=== PATIENT | female | born 1995 | race American Indian/Alaskan Native ===

== ENCOUNTER 2019-01-05 10:47 | Emergency (ER) | payer OTHER ==
[2019-01-05 11:30] LABS: Basophils # (Auto) 0.1 K/mm3 (0.0-0.1); Eosinophils % (Auto) 0.1 % (0.0-4.3); Hematocrit 39.2 % (30.3-42.9); Hemoglobin 13.2 gm/dl (10.1-14.3); Lymphocytes # (Auto) 1.4 K/mm3 (1.2-5.4); Lymphocytes % (Auto) 18.8 % (13.4-35.0); Mean Corpuscular HGB Conc 34 % (30-34); Mean Corpuscular Volume 95 fl (79-97); Monocytes # (Auto) 0.4 K/mm3 (0.0-0.8); Monocytes % (Auto) 5.5 % (0.0-7.3); Platelet Count 275 K/mm3 (140-440); Red Blood Count 4.11 M/mm3 (3.65-5.03); Red Cell Distribution Width 13.2 % (13.2-15.2)
[2019-01-05] MEDS ORDERED: NACL 0.9% 1000 ML 1,000 ML ONE (11:38)
[2019-01-05] MEDS ORDERED: ZOFRAN ONE (11:38)
[2019-01-05] MEDS ORDERED: TORADOL IV ONE (11:39)
[2019-01-05] MEDS ORDERED: BENTYL IM ONE (11:39)
[2019-01-05] MEDS ORDERED: NACL 0.9% 1000 ML 1,000 ML IV ONE ×2 (11:39→14:19)
[2019-01-05] MEDS ORDERED: PEPCID IV ONE (11:39)
[2019-01-05] MEDS ORDERED: ZOFRAN IV ONE ×2 (11:43→15:00)
[2019-01-05 11:45] LABS: Alanine Aminotransferase 17 units/L (7-56); Albumin 4.5 g/dL (3.9-5); BUN/Creatinine Ratio 10; Blood Urea Nitrogen 7 mg/dL (7-17); Calcium 9.9 mg/dL (8.4-10.2); Hemolysis Index 5
[2019-01-05] MEDS ORDERED: REGLAN IV ONE (12:09)
--- NOTE | 2019-01-05 14:36 | Ultrasound Report ---
ULTRASOUND OBSTETRIC INDICATION / CLINICAL INFORMATION: preg with abd pain. Clinical Gestational Age (GA): Unknown. Beta-hCG level is 22,563. TECHNIQUE: Transabdominal. Patient declined transvaginal examination. COMPARISON: None available. FINDINGS: GESTATIONAL SAC: Intrauterine gestational sac measuring 2.3 cm corresponding to 7 weeks 2 days gestat ional age. YOLK SAC: Possible small yolk sac visualized. EMBRYO/FETUS: Embryonic pole not definitely visualized. ADNEXA: No significant abnormality. FREE FLUID: None. ADDITIONAL FINDINGS: None. IMPRESSION: 1. Intrauterine gestational sac with size corresponding to 7 weeks 2 days gestational age. 2. No definite embryonic pole identified. Short-term clinical and laboratory follow-up is recommended . Repeat ultrasound, preferably with transvaginal technique, is recommended in 7-10 days. Signer Name: Arvind Rose MD Signed: 01/05/2019 2:32 PM Workstation Name: [id number]
[2019-01-05] MEDS ORDERED: D5NS 1,000 ML IV SCH ×2 (15:00→17:00)
[2019-01-05 15:40] LABS: Bilirubin,Urine SM (Negative); Blood,Urine NEG (Negative); Color,Urine Amber (Yellow); Mucus,Urine 3+ /HPF
[2019-01-05 15:42] LABS: Protein,Urine >500 mg/dL (Negative)
[2019-01-05 15:43] LABS: Ictotest,Urine Positive (Negative)
[2019-01-05] MEDS ORDERED: PHENERGAN PO ONE (15:56)
--- NOTE | 2019-01-05 15:56 | Ultrasound Report ---
US ABDOMEN LIMITED INDICATION / CLINICAL INFORMATION: RLQ pain. Patient is . COMPARISON: Ultrasound obstetric performed earlier in the day. FINDINGS: No abnormal appendix identified in the right lower quadrant. No abnormal fluid collection in the righ t lower quadrant. GESTATIONAL SAC: Well-defined oval shape and intrauterine in location. YOLK SAC: The yolk sac is better identified on this study than the previous study. EMBRYO/FETUS: No significant abnormality. - [place]-Rump Length = 0.42 cm = 6 weeks, 1 day(s). - Heart Rate, beats per minute (if present) = 87 IMPRESSION: 1. No sonographic abnormality of the right lower quadrant. 2. Yolk sac and embryonic pole better identified on the current study. heart rate is low at 87 bpm. Close clinical and sonographic follow-up is recommended. Signer Name: Avrind Rose MD Signed: 01/05/2019 3:52 PM Workstation Name: [id number]
--- NOTE | 2019-01-05 16:26 | Emergency Department Report ---
ED Abdominal Pain HPI - General Chief Complaint: Nausea/Vomiting/Diarrhea Stated Complaint: NAUSEA/WEAK Time Seen by Provider: 01/05/19 11:39 Source: patient Mode of arrival: Ambulatory Limitations: No Limitations - History of Present Illness Initial Comments: Patient is a 23-year-old female who is presenting with lower abdominal pain which is worse on the right lower quadrant. Patient states that the pain has been constant for the last 4 days. Patient been unable to keep anything down and said numerous episodes of nausea and vomiting. She denies diarrhea. Patient denies dysuria hematuria or vaginal discharge or vaginal bleeding. Patient's has some chills but no fever. Severity scale (0 -10): 0 - Related Data Previous Rx's Medication Instructions Recorded Last Taken Type Metoclopramide [Reglan] 10 mg PO TID #12 tab 01/05/19 Unknown Rx Nitrofurantoin [place]/M-Cryst 100 mg PO Q12HR #14 capsule 01/05/19 Unknown Rx [Macrobid CAP] Promethazine [Phenergan] 25 mg WA Q6HR PRN #7 supp.rect 01/05/19 Unknown Rx Allergies Allergy/AdvReac Type Severity Reaction Status Date / Time No Known Allergies Allergy Verified 01/05/19 10:54 ED Review of Systems ROS: Stated complaint: NAUSEA/WEAK Other details as noted in HPI Comment: All other systems reviewed and negative ED Past Medical Hx - Past Medical History Previous Medical History?: No - Surgical History Past Surgical History?: No - Social History Smoking Status: Current Every Day Smoker Substance Use Type: None - Medications Home Medications: Home Medications Medication Instructions Recorded Confirmed Last Taken Type Metoclopramide [Reglan] 10 mg PO TID #12 tab 01/05/19 Unknown Rx Nitrofurantoin [place]/M-Cryst 100 mg PO Q12HR #14 capsule 01/05/19 Unknown Rx [Macrobid CAP] Promethazine [Phenergan] 25 mg WA Q6HR PRN #7 supp.rect 01/05/19 Unknown Rx ED Physical Exam - General Limitations: No Limitations General appearance: alert, in distress - Head Head exam: Present: atraumatic, normocephalic - Eye Eye exam: Present: normal appearance - ENT ENT exam: Present: mucous membranes moist - Neck Neck exam: Present: normal inspection - Respiratory Respiratory exam: Present: normal lung sounds bilaterally. Absent: respiratory distress, wheezes, rales, rhonchi - Cardiovascular Cardiovascular Exam: Present: regular rate, normal rhythm. Absent: systolic murmur, diastolic murmur, rubs, gallop - GI/Abdominal GI/Abdominal exam: Present: soft, tenderness (lower abd R>L), normal bowel [place] nds. Absent: distended, guarding, rebound, rigid - Extremities Exam Extremities exam: Present: normal inspection - Back Exam Back exam: Present: normal inspection - Neurological Exam Neurological exam: Present: alert, oriented X3 - Psychiatric Psychiatric exam: Present: normal affect, normal mood - Skin Skin exam: Present: warm, dry, intact, normal color. Absent: rash ED Course Vital Signs 01/05/19 10:59 Temperature 97.7 F Pulse Rate 82 Respiratory 16 Rate Blood Pressure 125/86 Blood Pressure 125/86 [Left] O2 Sat by Pulse 99 Oximetry ED Medical Decision Making - Lab Data Result diagrams: 01/05/19 11:08 01/05/19 11:08 Lab Results 01/05/19 01/05/19 01/05/19 Range/Units 11:08 11:08 11:08 WBC 7.5 (4.5-11.0) K/mm3 RBC 4.11 (3.65-5.03) M/mm3 Hgb 13.2 (10.1-14.3) gm/dl Hct 39.2 (30.3-42.9) % MCV 95 (79-97) fl MCH 32 (28-32) pg MCHC 34 (30-34) % RDW 13.2 (13.2-15.2) % Plt Count 275 (140-440) K/mm3 Lymph % (Auto) 18.8 (13.4-35.0) % [place] % (Auto) 5.5 (0.0-7.3) % Eos % (Auto) 0.1 (0.0-4.3) % Baso % (Auto) 1.0 (0.0-1.8) % Lymph # 1.4 (1.2-5.4) K/mm3 [place] # 0.4 (0.0-0.8) K/mm3 Eos # 0.0 (0.0-0.4) K/mm3 Baso # 0.1 (0.0-0.1) K/mm3 Seg Neutrophils % 74.6 H (40.0-70.0) % Seg Neutrophils # 5.6 (1.8-7.7) K/mm3 Sodium 137 (137-145) mmol/L Potassium 3.2 L (3.6-5.0) mmol/L Chloride 102.0 (98-107) mmol/L Carbon Dioxide 18 L (22-30) mmol/L Anion Gap 20 mmol/L BUN 7 (7-17) mg/dL Creatinine 0.7 (0.7-1.2) mg/dL Estimated GFR > 60 ml/min BUN/Creatinine Ratio 10 % Glucose 140 H (65-100) mg/dL Calcium 9.9 (8.4-10.2) mg/dL Total Bilirubin 1.10 (0.1-1.2) mg/dL AST 18 (5-40) units/L ALT 17 (7-56) units/L Alkaline Phosphatase 60 (35-129) units/L Total Protein 7.6 (6.3-8.2) g/dL Albumin 4.5 (3.9-5) g/dL Albumin/Globulin Ratio 1.5 % Lipase (13-60) units/L HCG, Qual Positive (Negative) HCG, Quant (0-4) mIU/mL Urine Color (Yellow) Urine Turbidity (Clear) Urine pH (5.0-7.0) Ur Specific [place] (1.003-1.030) Urine Protein (Negative) mg/dL Urine Glucose (UA) (Negative) mg/dL Urine Ketones (Negative) mg/dL Urine Blood (Negative) Urine Nitrite (Negative) Urine Bilirubin (Negative) Urine Ictotest (Negative) Urine Urobilinogen (<2.0) mg/dL Ur Leukocyte Esterase (Negative) Urine WBC (Auto) (0.0-6.0) /HPF Urine RBC (Auto) (0.0-6.0) /HPF U Epithel Cells (Auto) (0-13.0) /HPF Urine Mucus /HPF 01/05/19 01/05/19 01/05/19 Range/Units 11:08 11:08 15:22 WBC (4.5-11.0) K/mm3 RBC (3.65-5.03) M/mm3 Hgb (10.1-14.3) gm/dl Hct (30.3-42.9) % MCV (79-97) fl MCH (28-32) pg MCHC (30-34) % RDW (13.2-15.2) % Plt Count (140-440) K/mm3 Lymph % (Auto) (13.4-35.0) % [place] % (Auto) (0.0-7.3) % Eos % (Auto) (0.0-4.3) % Baso % (Auto) (0.0-1.8) % Lymph # (1.2-5.4) K/mm3 [place] # (0.0-0.8) K/mm3 Eos # (0.0-0.4) K/mm3 Baso # (0.0-0.1) K/mm3 Seg Neutrophils % (40.0-70.0) % Seg Neutrophils # (1.8-7.7) K/mm3 Sodium (137-145) mmol/L Potassium (3.6-5.0) mmol/L Chloride (98-107) mmol/L Carbon Dioxide (22-30) mmol/L Anion Gap mmol/L BUN (7-17) mg/dL Creatinine (0.7-1.2) mg/dL Estimated GFR ml/min BUN/Creatinine Ratio % Glucose (65-100) mg/dL Calcium (8.4-10.2) mg/dL Total Bilirubin (0.1-1.2) mg/dL AST (5-40) units/L ALT (7-56) units/L Alkaline Phosphatase (35-129) units/L Total Protein (6.3-8.2) g/dL Albumin (3.9-5) g/dL Albumin/Globulin Ratio % Lipase 14 (13-60) units/L HCG, Qual (Negative) HCG, Quant 79609 H (0-4) mIU/mL Urine Color [place] (Yellow) Urine Turbidity Cloudy (Clear) Urine pH 6.0 (5.0-7.0) Ur Specific [place] 1.034 H (1.003-1.030) Urine Protein >500 (Negative) mg/dL Urine Glucose (UA) 50 (Negative) mg/dL Urine Ketones 80 (Negative) mg/dL Urine Blood Neg (Negative) Urine Nitrite Neg (Negative) Urine Bilirubin Sm (Negative) Urine Ictotest Positive (Negative) Urine Urobilinogen 2.0 (<2.0) mg/dL Ur Leukocyte Esterase Tr (Negative) Urine WBC (Auto) 7.0 H (0.0-6.0) /HPF Urine RBC (Auto) 3.0 (0.0-6.0) /HPF U Epithel Cells (Auto) 43.0 H (0-13.0) /HPF Urine Mucus 3+ /HPF - Radiology Data [address] [address] Ultrasound Report Signed Patient: DALY ERWIN MR#: [id number] : 1995 Acct:[id number] Age/Sex: 23 / F ADM Date: 01/05/19 Loc: ED Attending Dr: Ordering Physician: KALYAN GALEANO MD Date of Service: 01/05/19 Procedure(s): US OB <= 14 weeks fetus Accession Number(s): [id number] cc: KALYAN GALEANO MD ULTRASOUND OBSTETRIC INDICATION / CLINICAL INFORMATION: preg with abd pain. Clinical Gestational Age (GA): Unknown. Beta-hCG level is 22,563. TECHNIQUE: Transabdominal. Patient declined transvaginal examination. COMPARISON: None available. FINDINGS: GESTATIONAL SAC: Intrauterine gestational sac measuring 2.3 cm corresponding to 7 weeks 2 days gestational age. YOLK SAC: Possible small yolk sac visualized. EMBRYO/FETUS: Embryonic pole not definitely visualized. ADNEXA: No significant abnormality. FREE FLUID: None. ADDITIONAL FINDINGS: None. IMPRESSION: 1. Intrauterine gestational sac with size corresponding to 7 weeks 2 days gestational age. 2. No definite embryonic pole identified. Short-term clinical and laboratory follow-up is recommended. Repeat ultrasound, preferably with transvaginal technique, is recommended in 7-10 days. Signer Name: Arvind Rose MD Signed: 01/05/2019 2:32 PM Workstation Name: [id number] Transcribed By: DT Dictated By: Damaso Rose MD Electronically Authenticated By: Damaso Rose MD Signed Date/Time: 01/05/[address] [address] Ultrasound Report Signed Patient: DALY ERWIN MR#: [id number] : 1995 Acct:[id number] Age/Sex: 23 / F ADM Date: 01/05/19 Loc: ED Attending Dr: Ordering Physician: KALYAN GALEANO MD Date of Service: 01/05/19 Procedure(s): US abdomen limited Accession Number(s): [id number] cc: KALYAN GALEANO MD US ABDOMEN LIMITED INDICATION / CLINICAL INFORMATION: RLQ pain. Patient is . COMPARISON: Ultrasound obstetric performed earlier in the day. FINDINGS: No abnormal appendix identified in the right lower quadrant. No abnormal fluid collection in the right lower quadrant. GESTATIONAL SAC: Well-defined oval shape and intrauterine in location. YOLK SAC: The yolk sac is better identified on this study than the previous study. EMBRYO/FETUS: No significant abnormality. - [place]-Rump Length = 0.42 cm = 6 weeks, 1 day(s). - Heart Rate, beats per minute (if present) = 87 IMPRESSION: 1. No sonographic abnormality of the right lower quadrant. 2. Yolk sac and embryonic pole better identified on the current study. heart rate is low at 87 bpm. Close clinical and sonographic follow-up is recommended. Signer Name: Arvind Rose MD Signed: 01/05/2019 3:52 PM Workstation Name: [id number] Transcribed By: DT Dictated By: Damaso Rose MD Electronically Authenticated By: Damaso Rose MD Signed Date/Time: 01/05/19 1554 - Medical Decision Making Patient is 23-year-old [place] female who is presenting with abdominal pain nausea vomiting. Patient is in some distress secondary to actively vomiting. Because of the patient's pain location nausea vomiting and duration of symptoms initial thought was to check labs and do a CT of the abdomen and pelvis. Patien t was given Zofran and started on IV fluids. Patient's appropriate to test was positive. A CT was canceled and an ultrasound was ordered instead to rule out ectopic as well as inflammatory changes in the right lower quadrant consistent with appendicitis. The patient's ultrasound as above. Patient was given multiple medications for nausea and finally found some relief with Reglan and Phenergan. Once we were able to get the patient's urinalysis which showed ketones patient was switched to D5 normal saline which also is helped to improve patient's symptoms. Patient has a very mild UTI present who started on antibiotics. Patient discharged home with [employer] follow-up. Critical care attestation.: If time is entered above; I have spent that time in minutes in the direct care of this critically ill patient, excluding procedure time. ED Disposition Clinical Impression: Hyperemesis, Ketonuria, Dehydration Qualifiers: Weeks of gestation: less than 8 weeks Qualified Code(s): Z3A.01 - Less than 8 weeks gestation of Disposition: TO HOME OR SELFCARE Is pt being admited?: No Does the pt Need Aspirin: No Condition: Stable Instructions: (ED), Hyperemesis Gravidarum (ED), Urinary Tract Infection in Women (ED) Referrals: CHICO DAVILA MD [Staff Physician] - 3-5 Days Time of Disposition: 16:35
[2019-01-05 17:22] VITALS: BP 143/44
== END 2019-01-05 17:15 | disposition home or self-care (01) ==
LOC: ED 10:47
DX: O21.0 Mild hyperemesis gravidarum (principal); O26.891 Other specified pregnancy related conditions, first trimester; R82.4 Acetonuria; O99.281 Endocrine, nutritional and metabolic diseases complicating pregnancy, first trimester; E86.0 Dehydration; O99.331 Smoking (tobacco) complicating pregnancy, first trimester; Z79.899 Other long term (current) drug therapy; Z3A.01 Less than 8 weeks gestation of pregnancy
CPT/HCPCS: 36415; 76705; 76801; 80053; 81001; 83690; 84702; 84703; 85025; 96361; 96372; 96374; 96375; 96376; 99284; J0500; J1885; J2405; J2765; J7030; J7042; Q0169